=== PATIENT | male | born 1955 | race Hispanic/Latino ===

== ENCOUNTER 2017-08-11 16:26 | Emergency (ER) | payer OTHER ==
[~2017-08-11] VITALS: Ht 172.7 cm; Wt 103.9 kg
[2017-08-11 17:29] VITALS: BP 121/81
== END 2017-08-11 17:00 | disposition home or self-care (01) ==
LOC: FSED 16:26
DX: H10.023 Other mucopurulent conjunctivitis, bilateral (principal)
CPT/HCPCS: 99282